=== PATIENT | male | born 1980 | race Caucasian/White ===

== ENCOUNTER 2019-10-01 14:31 | Emergency (ER) | payer SELFPAY ==
[~2019-10-01] VITALS: Ht 167.6 cm; Wt 86.2 kg
[2019-10-01 14:32] VITALS: BP 145/84
--- NOTE | 2019-10-01 14:49 | NUR ---
Dr. Beck is evaluating the patient at bedside.
[2019-10-01] MEDS ORDERED: KETOROLAC 60 MG/2 ML VIAL IM ONE (14:55)
[2019-10-01 15:13] VITALS: BP 133/77
--- NOTE | 2019-10-01 15:14 | NUR ---
Patient discharged with v/s stable. Written and verbal after care instructions given and explained. Patient alert, oriented and verbalized understanding of instructions. Ambulatory with steady gait. All questions addressed prior to discharge. ID band removed. Patient advised to follow up with PMD. Rx of bactrim ds, keflex, given. Patient educated on indication of medication including possible reaction and side effects. Opportunity to ask questions provided and answered.
== END 2019-10-01 15:14 | disposition home or self-care (01) ==
LOC: MED 14:31
DX: L03.115 Cellulitis of right lower limb (principal); F17.210 Nicotine dependence, cigarettes, uncomplicated
CPT/HCPCS: 96372; 99283; J1885

== ENCOUNTER 2019-10-03 18:00 | Inpatient (IN) | payer MEDICAID ==
[~2019-10-03] VITALS: Ht 172.7 cm; Wt 90.7 kg
[2019-10-03] MEDS: NACL 0.9% 1,000 ML IV SCH
[2019-10-03 19:47] VITALS: BP 106/75
[2019-10-03 20:03] VITALS: BP 125/77
--- NOTE | 2019-10-03 20:15 | NUR ---
PT AMBULATED TO [facility]. PROVIDED URINE SAMPLE.
--- NOTE | 2019-10-03 20:24 | NUR ---
LAB AT BEDSIDE.
[2019-10-03 20:36] LABS: BASOPHILS % (AUTO) 0.4 % (0.0-2.0); EOSINOPHILS % (AUTO) 0.1 % (0.0-4.0); HEMATOCRIT 40.9 % (36-52); HEMOGLOBIN 13.5 g/dL (12.0-18.0); LYMPHOCYTES # (AUTO) 1.4 K/uL (2.0-11.5); LYMPHOCYTES % (AUTO) 21.9 % (20.5-51.1); MEAN CORPUSCULAR HEMOGLOBIN 29 pg (27-31); MEAN CORPUSCULAR HGB CONC 33 g/dL (33-37); MEAN CORPUSCULAR VOLUME 88.4 fL (80-94); MONOCYTES # (AUTO) 0.6 K/uL (0.8-1.0); MONOCYTES % (AUTO) 8.4 % (1.7-9.3); NEUTROPHILS # (AUTO) 4.6 K/uL (1.8-7.7); NEUTROPHILS % (AUTO) 69.2 % (42.2-75.2); PLATELET COUNT (AUTO) 294 K/uL (140-450); RED BLOOD CELL COUNT(AUTO) 4.63 MIL/uL (4.20-6.10); RED CELL DISTRIBUTION WIDTH 12.9 % (11.6-13.7); WHITE BLOOD COUNT (AUTO) 6.6 K/uL (4.8-10.8)
[2019-10-03 20:36] LABS: APPEARANCE,URINE CLEAR (CLEAR); BILIRUBIN,URINE NEGATIVE (NEGATIVE); BLOOD, URINE NEGATIVE (NEGATIVE); COLOR,URINE YELLOW (YELLOW); LEUKOCYTE ESTERASE ,URINE NEGATIVE (NEGATIVE); NITRITE, URINE NEGATIVE (NEGATIVE); UGLUCOSE NEGATIVE (NEGATIVE)
[2019-10-03 20:49] LABS: ALBUMIN 3.7 g/dL (3.4-5.0); ANION GAP 9.8 (8-16); CARBON DIOXIDE 33.5 mmol/L (21-32); CREATININE 1.1 mg/dL (0.6-1.3); POTASSIUM 4.3 mmol/L (3.5-5.1); TOTAL BILIRUBIN 0.2 mg/dL (0.0-1.0)
--- NOTE | 2019-10-03 20:50 | NUR ---
PT RETURNED FROM RAD
--- NOTE | 2019-10-03 20:53 | NUR ---
PT RETURNED FROM X-RAY VIA W/C.
--- NOTE | 2019-10-03 20:58 | NUR ---
39 YO M BIB SELF FOR C/C OF R FOOT INFECTION X4 DAYS. PT STATES HE HAS BEEN EXPERIENCING FEVER AND CHILLS BUT HAS BEEN NON COMPLIANT WITH ABX PRESCRIBED FOR INFECTION. DENIES TAKING ANY OTC MEDICATIONS. DENIES SOB, COUGH, AND TRAVEL. QUIN
--- NOTE | 2019-10-03 20:58 | NUR ---
PT DENIES MEDICAL HX.
--- NOTE | 2019-10-03 21:16 | NUR ---
PT AMBULATED TO ER BED 07
[2019-10-03] MEDS ORDERED: ACETAMINOPHEN 325 MG TAB PO PRN (21:45)
[2019-10-03] MEDS ORDERED: ONDANSETRON 4 MG/2 ML VIAL IM/IVP PRN (21:45)
[2019-10-03] MEDS ORDERED: HYDROcodone/APAP 5/325 MG 1 TAB TAB PO PRN (21:45)
[2019-10-03] MEDS ORDERED: NACL 0.9% 1,000 ML IV ONE (22:00)
[2019-10-03] MEDS ORDERED: cefTRIAXone 1,000 MG VIAL ONE (22:08)
--- NOTE | 2019-10-03 22:20 | NUR ---
ROCEPHIN 1000MG IN D5% 50 ML GIVEN AT 50 MLHR IN R AC. PT IV SITE IS PATENT. NO REDNESS, SWELLING, OR C/O PAIN AT SITE.
--- NOTE | 2019-10-03 22:25 | NUR ---
TEMP RECHECKED: 99.1 ORAL.
--- NOTE | 2019-10-03 22:32 | NUR ---
PT GIVEN URINAL TO USE RESTROOM. UA SAMPLE COLLECTED AND GIVEN TO FOOT CUTTER.
--- NOTE | 2019-10-03 22:34 | NUR ---
PT ADNITTED TO M/S, ROOM-106. BED IS READY
[2019-10-03 22:41] LABS: BARBITURATE, URINE NEGATIVE ng/ml (NEG <=200); BENZODIAZEPINE, URINE NEGATIVE ng/mL (NEG <=200); CANNABINOID, URINE NEGATIVE ng/mL (NEG <=50); COCAINE, URINE NEGATIVE ng/mL (NEG <=300); OPIATE, URINE NEGATIVE ng/mL (NEG <=2000); PHENCYCLIDINE SCREEN,URINE NEGATIVE ng/mL (NEG <=25)
[2019-10-03 22:42] LABS: MAGNESIUM 2.1 mg/dL (1.8-2.4); PHOSPHORUS 3.8 mg/dL (2.5-4.9); THYROID STIMULATING HORMONE 1.68 uIU/mL (0.34-3.74)
[2019-10-03] MEDS ORDERED: DEXTROSE 50% 50 ML SYR IVP PRN (23:10)
[2019-10-03] MEDS ORDERED: INSULIN LISPRO SLIDING SCALE 100 UNITS/ML VIAL SUBQ PRN (23:10)
[2019-10-03 23:35] VITALS: BP 107/46
--- NOTE | 2019-10-03 23:35 | NUR ---
Patient will be admitted to care of DR. ALVARADO. Admited to [facility]. Will go to room 106B. Belongings list completed. Report to FARHAD MIN.
--- NOTE | 2019-10-03 23:40 | NUR ---
PATIENT RECEIVED FROM ER NURSE BARBIE AT 2335. HE ARRIVED VIA WHEELCHAIR, AND IS ALERT AND ORIENTED X4. PATIENT IS ON ROOM AIR WITH 02 SAT AT 98%, NO S/S OF RESP DISTRESS NOTED. DENIES ANY CURRENT PAIN. RIGHT AC 20 GAUGE IV INTACT AND PATENT. PATIENT ORIENTED TO UNIT AND STAFF. PATIENT VERBALIZED UNDERSTANDING. CALL LIGHT WITHIN REACH AND BED IN LOW POSITION. WILL CONTINUE TO MONITOR
--- NOTE | 2019-10-04 00:15 | NUR ---
PATIENTS IV FLUID HUNG PER MD ORDERS, SNACK PROVIDED PER PATIENT REQUEST. WILL CONTINUE TO MONITOR
--- NOTE | 2019-10-04 02:30 | NUR ---
NO CULTURE OBTAINED ON RIGHT FOOT WOUND, NO DRAINAGE NOTED. WILL ENDORSE TO AM SHIFT.
[2019-10-04] MEDS ORDERED: CLINDAMYCIN 600 MG/4 ML VIAL ONE (04:45)
[2019-10-04] MEDS: CLINDAMYCIN 600 MG in DEXTROSE 5% 50 ML IV SCH ×3 (04:53→21:22)
--- NOTE | 2019-10-04 04:55 | NUR ---
ANTIBIOTIC HUNG PER MD ORDER, PATIENT IS AWAKE IN BED, DENIES ANY PAIN OR DISCOMFORT. MEDICATION EDUCATION GIVEN AND PATIENT VERBALIZED UNDERSTANDING. BED IN LOW POSITION AND CALL LIGHT WITHIN REACH. WILL CONTINUE TO MONITOR.
--- NOTE | 2019-10-04 06:21 | NUR ---
PATIENT AWAKE IN BED. NO VOICED COMPLAINTS. BED IN LOW POSITION AND CALL LIGHT WITHIN REACH. WILL CONTINUE TO MONITOR
--- NOTE | 2019-10-04 06:34 | NUR ---
BLOOD GLUCOSE 93, NO COVERAGE NEEDED AND RESIDENT DC'D BLOOD GLUCOSE MONITORING.
--- NOTE | 2019-10-04 07:26 | NUR ---
REPORT GIVEN TO AM SHIFT NURSE FOR CONTINUITY OF CARE. PATIENT IS IN STABLE CONDITION AT THIS TIME. BED IN LOW POSITION AND CALL LIGHT WITHIN REACH
--- NOTE | 2019-10-04 07:27 | NUR ---
RECEIVED REPORT FROM ASSOCIATE PROFESSOR OF ART HISTORY NURSE ESTEPHANIA FOR CONTINUITY OF CARE. PATIENT IN STABLE CONDITION RESPIRATIONS EVEN AND UNLABORED, ROOM AIR, IV INTACT AND PATENT. SAFETY MEASURES IN PLACE. BED IN LOW POSITION. BED LOCKED. CALL LIGHT AT BEDSIDE. WILL CONTINUE TO MONITOR.
[2019-10-04] MEDS ORDERED: BLOOD GLUCOSE MONITORING 1 DEV DEV FS SCH (07:30)
--- NOTE | 2019-10-04 09:20 | NUR ---
PATIENT HAS BEEN SCREENED AND CATEGORIZED MODERATE NUTRITION RISK. PATIENT WILL BE SEEN WITHIN 3-5 DAYS OF ADMISSION. 10/06/19 10/08/[address]
--- NOTE | 2019-10-04 11:33 | NUR ---
PATIENT SLEEP AT THIS TIME. RESPIRATIONS EVEN AND UNLABORED. BED IN LOW POSITION. CALL LIGHT WITHIN REACH. WILL CONTINUE TO MONITOR.
--- NOTE | 2019-10-04 13:01 | NUR ---
PATIENT FINISHING LUNCH AT THIS TIME. BED IN LOW POSITION. CALL LIGHT WITHIN REACH. WILL CONTINUE TO MONITOR.
--- NOTE | 2019-10-04 15:44 | NUR ---
PATIENT SLEEP AT THIS TIME. RESPIRATIONS EVEN AND UNLABORED. BED IN LOW POSITION. CALL LIGHT WITHIN REACH. WILL CONTINUE TO MONITOR.
[2019-10-04] MEDS: NACL 0.9% 1,000 ML IV SCH (15:55)
[2019-10-04 16:00] VITALS: BP 113/65
--- NOTE | 2019-10-04 16:24 | NUR ---
DISCHARGE PLANNING: THIS IS A 39 Y/O MALE PATIENT FROM HOME, WHO CAME IN DUE TO RIGHT FOOT PAIN AND SWELLING. PAST MEDICAL HISTORY INCLUDE DIABETES. INITIAL DIAGNOSIS OF CELLULITIS. FOOT X RAY ON ADMISSION SHOWED NO EVIDENCE OF ACUTE OSSEOUS INJURY. BLE U/S SHOWED NO DVT. ON ROCEPHIN AND CLINDAMYCIN. PODIATRY CONSULT IN PLACE AND SEEN - UNNA BOOT, AUGUST DC FROM PODIATRY STAND POINT AND TO DC WITH PO ANTIBIOTIC OUT PATIENT FOR CELLULITIS. TO FOLLOW UP WITH PODIATRY ON OCTOBER 13 AT 1300. DC PLAN BACK TO HOME ONCE STABLE.
--- NOTE | 2019-10-04 17:55 | NUR ---
PATIENT WATCHING TV AT THIS TIME. RESPIRATIONS EVEN AND UNLABORED. BED IN LOW POSITION. CALL LIGHT WITHIN REACH. WILL CONTINUE TO MONITOR.
--- NOTE | 2019-10-04 19:30 | NUR ---
PATIENT TALKING WITH ROOMMATE AT THIS TIME. RESPIRATIONS EVEN AND UNLABORED. BED IN LOW POSITION. CALL LIGHT WITHIN REACH. WILL CONTINUE TO MONITOR.
[2019-10-04 20:00] VITALS: BP 116/65
--- NOTE | 2019-10-04 21:22 | NUR ---
GAVE ORDERED DUE MEDICATIONS AT THIS TIME. PATIENT TOLERATED WELL. BED IN LOW POSITION. CALL LIGHT WITHIN REACH. WILL CONTINUE TO MONITOR.
--- NOTE | 2019-10-04 21:45 | NUR ---
WOUND CULTURE COLLECTED AND TAKEN TO LAB.
--- NOTE | 2019-10-04 23:19 | NUR ---
GAVE REPORT TO FIRST ASSISTANT NURSE FOR CONTINUITY OF CARE. PATIENT IN STABLE CONDITION.
--- NOTE | 2019-10-04 23:45 | NUR ---
RECEIVED REPORT FROM BARTOLO MIN.PT'S CONDITION IS STABLE.CALL LIGHT WITHIN TRACH.WILL CONTINUE MONITORING.
[2019-10-05] VITALS: BP 123/69
--- NOTE | 2019-10-05 01:23 | NUR ---
HAD FEVER 102.2.TYLENOL 650MG PO GIVEN. WILL REASSESS TEMP.LATER.
--- NOTE | 2019-10-05 03:30 | NUR ---
NO FEVER T=98.8
[2019-10-05] MEDS: CLINDAMYCIN 600 MG in DEXTROSE 5% 50 ML IV SCH ×2 (05:36→12:04)
--- NOTE | 2019-10-05 07:23 | NUR ---
ENDORSED PT TO HERNESTO MIN. PT'S CONDITION IS STABLE. IVF IS IN PROGRESS.
--- NOTE | 2019-10-05 07:24 | NUR ---
RECEIVED REPORT FROM KITCHEN MANAGER NURSE BERNARD-RN. PT RESTING IN BED, AOX4- MALTESE/GREENLANDIC SPEAKING, ON ROOM AIR WITH RIGHT AC #20G RUNNING NS @60ML/HR. RIGHT FOOD AND LOWER ABDOMINAL FOLD COVERED IN DRESSING. DISCUSSED PLAN OF CARE AND PT VERBALIZED UNDERSTANDING. CALL LIGHT WITHIN REACH. NO S/S OF RESPIRATORY DISTRESS OR DISCOMFORT NOTED AT THIS TIME. WILL CONTINUE TO MONITOR.
[2019-10-05 07:50] LABS: ANION GAP 10.8 (8-16); CARBON DIOXIDE 29.3 mmol/L (21-32); POTASSIUM 5.1 mmol/L (3.5-5.1)
[2019-10-05 07:56] LABS: PHOSPHORUS 4.6 mg/dL (2.5-4.9)
[2019-10-05 07:59] LABS: BASOPHILS % (AUTO) 0.3 % (0.0-2.0); EOSINOPHILS % (AUTO) 0.3 % (0.0-4.0); HEMATOCRIT 40.4 % (36-52); HEMOGLOBIN 13.2 g/dL (12.0-18.0); LYMPHOCYTES # (AUTO) 1.6 K/uL (2.0-11.5); MEAN CORPUSCULAR HEMOGLOBIN 29 pg (27-31); MEAN CORPUSCULAR HGB CONC 33 g/dL (33-37); MONOCYTES # (AUTO) 0.5 K/uL (0.8-1.0); NEUTROPHILS # (AUTO) 3.4 K/uL (1.8-7.7); NEUTROPHILS % (AUTO) 61.4 % (42.2-75.2); PLATELET COUNT (AUTO) 269 K/uL (140-450); RED BLOOD CELL COUNT(AUTO) 4.53 MIL/uL (4.20-6.10); RED CELL DISTRIBUTION WIDTH 12.7 % (11.6-13.7); WHITE BLOOD COUNT (AUTO) 5.6 K/uL (4.8-10.8)
[2019-10-05 08:00] VITALS: BP 106/59
--- NOTE | 2019-10-05 09:00 | NUR ---
SCHEDULED MEDICATION HEPARIN NOT GIVEN DUE TO PT REFUSAL. CALL LIGHT WITHIN REACH. NO S/S OF RESPIRATORY DISTRESS OR DISCOMFORT NOTED AT THIS TIME. WILL CONTINUE TO MONITOR.
[2019-10-05] MEDS: NACL 0.9% 1,000 ML IV SCH (09:33)
--- NOTE | 2019-10-05 11:00 | NUR ---
PT RESTING IN BED. CALL LIGHT WITHIN REACH. NO S/S OF RESPIRATORY DISTRESS OR DISCOMFORT NOTED AT THIS TIME. WILL CONTINUE TO MONITOR.
--- NOTE | 2019-10-05 12:04 | NUR ---
SCHEDULED MEDICATION CLEOCIN GIVEN AND TOLERATED WELL. CALL LIGHT WITHIN REACH. NO S/S OF RESPIRATORY DISTRESS OR DISCOMFORT NOTED AT THIS TIME. WILL CONTINUE TO MONITOR.
[2019-10-05] MEDS ORDERED: SULF-58 PO (12:05)
[2019-10-05 13:10] VITALS: BP 106/59
--- NOTE | 2019-10-05 14:30 | NUR ---
PT SIGNED DISCHARGE PAPERWORK. VERBALIZED UNDERSTANDING. CALL LIGHT WITHIN REACH. NO S/S OF RESPIRATORY DISTRESS OR DISCOMFORT NOTED AT THIS TIME. WILL CONTINUE TO MONITOR.
--- NOTE | 2019-10-05 16:00 | NUR ---
IV REMOVED- CATHETER INTACT. PT REMOVED ID BAND IN ROOM BEFORE CHANGING TO HIS CLOTHES. PT WAS TAKEN TO FRONT LOBBY VIA WHEELCHAIR WHERE [facility]I CAB WAS AWAITING HIM TO TAKE HIM TO THE ADDRESS LISTED IN [place]. PT STABLE AT THIS TIME.
--- NOTE | 2019-10-07 08:37 | NUR ---
WOUND CONSULT NOT DONE, PT. DISCHARGED
== END 2019-10-05 16:00 | disposition home or self-care (01) | DRG 720 ==
LOC: MED 18:00 → MTU 21:44
PROVIDERS: ADMIT General Practice; ATTEND General Practice
DX: A41.9 Sepsis, unspecified organism (principal); E11.65 Type 2 diabetes mellitus with hyperglycemia; L03.311 Cellulitis of abdominal wall; L03.115 Cellulitis of right lower limb; L08.1 Erythrasma; F15.10 Other stimulant abuse, uncomplicated; F17.210 Nicotine dependence, cigarettes, uncomplicated
CPT/HCPCS: 36415; 71045; 73630; 80048; 80053; 80305; 81003; 82948; 83036; 83605; 83735; 83880; 84100; 84443; 84484; 85025; 87040; 87070; 87075; 87081; 87086; 87205; 93970; 96365; 99285; J0696; J1644; J3490; J7030; J7060; Q0092

== ENCOUNTER 2023-07-24 17:50 | Emergency (ER) | payer MEDICAID ==
[~2023-07-24] VITALS: Ht 162.6 cm; Wt 84.4 kg
[~2023-07-24 17:50] MED LIST: SULF-58 PO
[2023-07-24 18:09] VITALS: BP 114/77; PULSE 90; RESP 18; TEMP 98.6; O2SAT 97
== END 2023-07-24 19:20 | disposition left against medical advice (07) ==
LOC: MED 17:50
DX: L02.416 Cutaneous abscess of left lower limb (principal); L02.415 Cutaneous abscess of right lower limb; M79.89 Other specified soft tissue disorders; Z53.21 Procedure and treatment not carried out due to patient leaving prior to being seen by health care provider
CPT/HCPCS: 99281

== ENCOUNTER 2023-07-25 11:57 | Inpatient (IN) | payer MEDICAID ==
[~2023-07-25] VITALS: Ht 162.6 cm; Wt 83.5 kg
[2023-07-25 12:49] VITALS: BP 122/70; PULSE 98; RESP 20; TEMP 98.3
[2023-07-25 13:46] LABS: BASOPHILS % (AUTO) 0.2 % (0.0-2.0); EOSINOPHILS # (AUTO) 0.1 K/uL (0-0.4); EOSINOPHILS % (AUTO) 0.4 % (0.0-4.0); HEMATOCRIT 35.2 % (36-52); HEMOGLOBIN 11.9 g/dL (12.0-18.0); LYMPHOCYTES # (AUTO) 1.2 K/uL (2.0-11.5); LYMPHOCYTES % (AUTO) 8.7 % (20.5-51.1); MEAN CORPUSCULAR HEMOGLOBIN 29 pg (27-31); MEAN CORPUSCULAR HGB CONC 34 g/dL (33-37); MEAN CORPUSCULAR VOLUME 86.7 fL (80-94); MONOCYTES # (AUTO) 1.2 K/uL (0.8-1.0); MONOCYTES % (AUTO) 8.7 % (1.7-9.3); PLATELET COUNT (AUTO) 313 K/uL (140-450); RED BLOOD CELL COUNT(AUTO) 4.06 MIL/uL (4.20-6.10); RED CELL DISTRIBUTION WIDTH 12.9 % (11.6-13.7); WHITE BLOOD COUNT (AUTO) 13.5 K/uL (4.8-10.8)
[2023-07-25 13:55] LABS: ANION GAP 12.3 (8-16); CALCIUM 8.5 mg/dL (8.5-10.1); CARBON DIOXIDE 26.3 mmol/L (21-32); CREATININE 0.9 mg/dL (0.6-1.3); POTASSIUM 3.6 mmol/L (3.5-5.1)
[2023-07-25 14:12] LABS: ALANINE AMINOTRANSFERASE 79 U/L (12-78); ALBUMIN 2.9 g/dL (3.4-5.0); ALKALINE PHOSPHATASE 99 U/L (50-136); ASPARTATE AMINOTRANSFERASE 45 U/L (15-37); BILIRUBIN,DIRECT 0.1 mg/dL (0.0-0.3); TOTAL BILIRUBIN 0.2 mg/dL (0.0-1.0); TOTAL PROTEIN, SERUM 6.8 g/dL (6.4-8.2)
[2023-07-25] MEDS: VANCOMYCIN 1,000 MG in DEXTROSE 5% 250 ML IV ONE (15:45)
[2023-07-25] MEDS: CEFEPIME 1,000 MG in DEXTROSE 5% 50 ML IV ONE (16:07)
[2023-07-25] MEDS: NACL 0.9% 1,000 ML IV ONE (16:28)
[2023-07-25] MEDS: LIDOCAINE/EPI 1% 1:100000 20 ML VIAL INJ ONE (17:02)
[2023-07-25] MEDS ORDERED: DOXYCYCLINE 100 MG in DEXTROSE 5% 100 ML IV SCH (17:35)
[2023-07-25] MEDS ORDERED: PIPERACILLIN/TAZOBACTAM 4.5 GM VIAL IV ONE (18:08)
[2023-07-25] MEDS: diphenhydrAMINE 50 MG/ML VIAL IVP ONE (18:12)
[2023-07-25] MEDS: PIPERACILLIN/TAZOBACTAM 4.5 GM in DEXTROSE 5% 100 ML IV ONE (18:22)
[2023-07-25] MEDS ORDERED: MORPHINE SULFATE 4 MG/ML SYR IVP PRN (18:55)
[2023-07-25] MEDS ORDERED: NACL 0.9% 1,000 ML IV SCH (18:55)
[2023-07-25] MEDS ORDERED: ACETAMINOPHEN 325 MG TAB PO PRN (18:55)
[2023-07-25] MEDS ORDERED: ONDANSETRON 4 MG/2 ML VIAL IVP PRN (18:55)
[2023-07-25] MEDS ORDERED: HYDROcodone/APAP 5/325 MG 1 TAB TAB PO PRN (18:55)
[2023-07-25] MEDS: POTASSIUM CHL 20 MEQ/NACL 0.9% 1,000 ML IV SCH (19:10)
[2023-07-25] MEDS ORDERED: PIPERACILLIN/TAZOBACTAM 3.375 GM in DEXTROSE 5% 50 ML IV SCH (21:00)
[2023-07-25] MEDS: LINEZOLID 600 MG TAB PO SCH (21:18)
[2023-07-26 02:00] VITALS: BP 121/73; PULSE 80; PULSE 83; RESP 18; TEMP 97.8; O2SAT 97
[2023-07-26 04:04] VITALS: PULSE 87
[2023-07-26] MEDS: PIPERACILLIN/TAZOBACTAM 3.375 GM VIAL IV ONE (06:30)
[2023-07-26] MEDS: PIPERACILLIN/TAZOBACTAM 3.375 GM in DEXTROSE 5% 50 ML IV SCH (06:30)
[2023-07-26 06:58] LABS: BASOPHILS % (AUTO) 0.3 % (0.0-2.0); EOSINOPHILS # (AUTO) 0.1 K/uL (0-0.4); EOSINOPHILS % (AUTO) 0.5 % (0.0-4.0); HEMATOCRIT 36.7 % (36-52); HEMOGLOBIN 12.3 g/dL (12.0-18.0); LYMPHOCYTES # (AUTO) 1.6 K/uL (2.0-11.5); LYMPHOCYTES % (AUTO) 15.6 % (20.5-51.1); MEAN CORPUSCULAR HEMOGLOBIN 29 pg (27-31); MEAN CORPUSCULAR HGB CONC 34 g/dL (33-37); MEAN CORPUSCULAR VOLUME 86.4 fL (80-94); MONOCYTES # (AUTO) 0.8 K/uL (0.8-1.0); MONOCYTES % (AUTO) 7.6 % (1.7-9.3); NEUTROPHILS # (AUTO) 7.9 K/uL (1.8-7.7); PLATELET COUNT (AUTO) 353 K/uL (140-450); RED BLOOD CELL COUNT(AUTO) 4.24 MIL/uL (4.20-6.10); RED CELL DISTRIBUTION WIDTH 13.1 % (11.6-13.7); WHITE BLOOD COUNT (AUTO) 10.4 K/uL (4.8-10.8)
[2023-07-26 08:00] VITALS: BP 114/71; PULSE 69; PULSE 82; RESP 18; TEMP 97.5; O2SAT 97
[2023-07-26 08:12] LABS: ALBUMIN 2.6 g/dL (3.4-5.0); ANION GAP 14.1 (8-16); CALCIUM 8.5 mg/dL (8.5-10.1); CREATININE 0.7 mg/dL (0.6-1.3); MAGNESIUM 2.2 mg/dL (1.8-2.4); POTASSIUM 4.1 mmol/L (3.5-5.1); TOTAL BILIRUBIN 0.4 mg/dL (0.0-1.0); TOTAL PROTEIN, SERUM 6.7 g/dL (6.4-8.2)
[2023-07-26] MEDS: ASPIRIN 81 MG TAB.CHEW PO SCH (08:44)
[2023-07-26] MEDS: ENOXAPARIN 40 MG/0.4 ML SYR SUBQ SCH (08:47)
[2023-07-26] MEDS ORDERED: WOUND CARE PREPARATION 178 ML SPR TP PRN (10:55)
[2023-07-26] MEDS ORDERED: NON ADHERENT DRESSING TP PRN (10:55)
[2023-07-26 12:00] VITALS: BP 106/69; PULSE 82; PULSE 84; RESP 18; TEMP 97.8; O2SAT 96
[2023-07-26] MEDS: NON ADHERENT DRESSING TP SCH (13:00)
[2023-07-26] MEDS: WOUND CARE PREPARATION 178 ML SPR TP SCH (13:00)
[2023-07-26 16:00] VITALS: BP 105/62; PULSE 77; PULSE 82; RESP 18; TEMP 97; O2SAT 99
[2023-07-26 18:06] LABS: BASOPHILS # (AUTO) 0.1 K/uL (0.00-0.22); BASOPHILS % (AUTO) 0.7 % (0.0-2.0); EOSINOPHILS # (AUTO) 0.1 K/uL (0-0.4); EOSINOPHILS % (AUTO) 0.7 % (0.0-4.0); HEMATOCRIT 38.2 % (36-52); HEMOGLOBIN 13.1 g/dL (12.0-18.0); LYMPHOCYTES # (AUTO) 1.7 K/uL (2.0-11.5); MEAN CORPUSCULAR HEMOGLOBIN 30 pg (27-31); MEAN CORPUSCULAR HGB CONC 34 g/dL (33-37); MEAN CORPUSCULAR VOLUME 86.2 fL (80-94); MONOCYTES # (AUTO) 0.6 K/uL (0.8-1.0); MONOCYTES % (AUTO) 7.6 % (1.7-9.3); NEUTROPHILS # (AUTO) 5.4 K/uL (1.8-7.7); PLATELET COUNT (AUTO) 370 K/uL (140-450); RED BLOOD CELL COUNT(AUTO) 4.43 MIL/uL (4.20-6.10); RED CELL DISTRIBUTION WIDTH 13.1 % (11.6-13.7); WHITE BLOOD COUNT (AUTO) 7.8 K/uL (4.8-10.8)
[2023-07-26 18:14] LABS: ANION GAP 12.7 (8-16); CALCIUM 8.8 mg/dL (8.5-10.1); CARBON DIOXIDE 28.9 mmol/L (21-32); CREATININE 0.8 mg/dL (0.6-1.3); POTASSIUM 4.6 mmol/L (3.5-5.1)
[2023-07-26 20:00] VITALS: BP 110/80; PULSE 103; PULSE 82; RESP 18; TEMP 97.6; O2SAT 98
[2023-07-27] VITALS (7 sets, daily range): BP systolic 115–120; BP diastolic 62–70; PULSE 75–81; RESP 16–20; TEMP 97.2–98.4; O2SAT 96–100
[2023-07-27] MEDS: carvediloL 6.25 MG TAB PO SCH (21:03)
[2023-07-28 04:00] VITALS: BP 126/69; PULSE 80; RESP 19; TEMP 98.1; O2SAT 98
[2023-07-28] MEDS: LOSARTAN 25 MG TAB PO SCH (09:06)
[2023-07-28] MEDS ORDERED: LOSA-269 PO (09:10)
[2023-07-28] MEDS ORDERED: ASPI81CT95 PO (09:10)
[2023-07-28] MEDS ORDERED: CARV6.252 PO (09:10)
[2023-07-28] MEDS ORDERED: LACT1CAP81 PO (09:10)
[2023-07-28] MEDS ORDERED: LEVO750T75 PO (09:10)
[2023-07-28 12:04] VITALS: BP 102/62; PULSE 62; RESP 18; TEMP 98
== END 2023-07-28 13:00 | disposition home or self-care (01) | DRG 720 ==
LOC: MED 11:57 → MTU 19:04
PROVIDERS: ADMIT Internal Medicine; ATTEND Internal Medicine
DX: A41.9 Sepsis, unspecified organism (principal); E44.0 Moderate protein-calorie malnutrition; L03.116 Cellulitis of left lower limb; E87.1 Hypo-osmolality and hyponatremia; Z59.00 Homelessness unspecified; R74.01 Elevation of levels of liver transaminase levels; F19.10 Other psychoactive substance abuse, uncomplicated; F10.90 Alcohol use, unspecified, uncomplicated; W57.XXXA Bitten or stung by nonvenomous insect and other nonvenomous arthropods, initial encounter; Z79.899 Other long term (current) drug therapy; Z68.31 Body mass index [BMI] 31.0-31.9, adult
CPT/HCPCS: 36415; 71045; 73700; 80048; 80053; 80076; 83735; 83880; 84484; 85025; 87040; 87070; 87075; 87081; 93005; 96365; 96375; 99285; J1200; J1650; J2001; J2543; J3490; J7030; J7060